=== PATIENT | female | born 1985 | race Caucasian/White ===

== ENCOUNTER 2021-06-13 08:19 | Emergency (ER) | payer OTHER ==
[~2021-06-13] VITALS: Ht 167.6 cm; Wt 87.1 kg
[~2021-06-13 08:19] MED LIST: CEFD300 PO; ESCI20 PO; PRAM.5 PO; SULTRIDS PO
== END 2021-06-13 10:05 | disposition home or self-care (01) ==
LOC: ER 08:19
DX: H00.014 Hordeolum externum left upper eyelid (principal); R51.9 Headache, unspecified; L03.213 Periorbital cellulitis; Z79.899 Other long term (current) drug therapy
CPT/HCPCS: 99282; A9270